=== PATIENT | female | born 1960 | race Caucasian/White ===

== ENCOUNTER 2023-10-15 00:50 | Emergency (ER) | payer OTHER, SELFPAY ==
[2023-10-15 00:53] VITALS: BP 122/99
--- NOTE | 2023-10-15 01:42 | ED.GENMED ---
History of Present Illness
General
Chief Complaint: Change in Mental Status
Source: patient
Exam Limitations: none
Time Seen by Provider: 10/15/23 01:30
Nursing documentation reviewed up to this point in time: agreed with
Travel History
Have you had any contact with someone who has COVID-19?: Unable to Answer
Do you have any symptoms of coronavirus? Fever > 100 degrees, chills, cough, shortness of breath, sore throat, loss of taste or smell, muscle aches, or headache?: Unable to Answer
History of Present Illness
History of Present Illness:
Pleasantly demented 63-year-old female presents with altered mental status. She resides at [facility] and presented tonight for escalating agitation. According to nursing report from the [facility], patient is normally agitated
but staff reports that she is more agitated tonight. who is present at the bedside states that she had an episode similar a few days ago but it resolved on its own. History is limited from patient but is a good historian.
does state that patient had a fall approximate 2 weeks ago and suffered bilateral black eyes. He is does not feel that she ever had a CAT scan to evaluate that. Patient was recently started on risperidone to help with these outbursts.
Past History
Past History
ED Past Medical History: Other (Dementia)
ED Past Surgical History: None
Social History
Tobacco: Non-smoker
Alcohol: Occasional
Personal: Single
Living: [facility]
Employment: Employed
Family History
Family History: Other
Review of Systems
Review of Systems
Allergies reviewed?: Yes
Unable to obtain full review of systems at this time due to: dementia
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
All Other Systems: Not applicable
Psychiatric: Reports anxiety
Phy Exam
General Physical Exam
General Presentation: no apparent distress (At time of exam, but verbal outbursts were heard prior to H&P)
General age: appears older than age
General Skin: warm and dry
General Habitus: normal
General Mental: confused and usual mental status
General Hydration: appears well hydrated
General Chronic Disability: demented
ENT Exam
ENT Exam: EOMI, pharynx normal, neck supple and normocephalic
Eye Exam
Eye Exam: PERRL, cornea clear and conjunctiva normal
Cardiovascular Exam
Cardiovascular Exam: regular rate/rhythm and no edema
Pulmonary Exam
Pulmonary Exam: lungs clear, no respiratory distress, no rales, no crackles, no rhonchi, no stridor, no wheezing and no cough
Gastrointestinal Exam
Gastrointestinal Exam: normal bowel sounds, non tender, soft, no organomegaly, no pulsatile mass and non distended
Neurological Exam
Neurological Exam: alert, oriented x3, no motor deficits and speech normal
Musculoskeletal Exam
Musculoskeletal Exam: full ROM and no edema
Skin Exam
Skin Exam: normal color, warm/dry, no rash and no petechia
Psychiatric Exam
Psychiatric Exam: normal mood/affect
Course
Orders/Labs/Results
Orders:
Orders
10/15/23 01:30
CT Head W/o Iv Contrast Urgent
Comment:
Reason For Exam: ams
10/15/23 02:07
Complete Blood Count/With Diff Urgent
Comprehensive Metabolic Panel Urgent
Urinalysis Reflex To Culture Urgent
Date Specimen was Collected: 10/15/23
Time Specimen was Collected: 02:06
Urine Microscopic Reflex Cult Urgent
Urine Culture Urgent
CATHERINE Source: U
Specimen Description:
Date Specimen was Collected: 10/15/23
Time Specimen was Collected: 02:06
10/15/23 03:01
0.9% Sodium Chloride 500 ml [Nss] 500 ml IV BOLUS
Abnormal Lab Results
10/15/23
02:07
RBC 3.73 L 10^6/uL
(4.20-5.40)
Hgb 11.9 L g/dL
(12.0-16.0)
Hct 33.4 L %
(37.0-47.0)
MCH 31.9 H pg
(27.0-31.0)
Absolute Monos (auto) 0.8 H 10^3/uL
(0.1-0.6)
Lymphocytes % 16.9 L %
(20.5-51.1)
Monocytes % 10.4 H %
(1.7-9.3)
BUN 22 H mg/dl
(7-17)
Glucose 112 H mg/dl
(70-99)
Total Protein 6.1 L g/dl
(6.3-8.2)
Leukocyte Esterase Rfl Trace A
(Negative)
Urine RBC 7-10 A /HPF
(0-2)
Urine Bacteria (Reflex) Many A
(Negative)
10/15/23 02:07
10/15/23 02:07
Vital Signs
Initial and Last Documented VS:
Initial Vital Signs
Temp Pulse Resp BP Pulse Ox
97.8 F 95 18 122/99 95
10/15/23 00:53 10/15/23 00:53 10/15/23 00:53 10/15/23 00:53 10/15/23 00:53
Last Documented Vital Signs
Temp Pulse Resp BP Pulse Ox
97.8 F 81 18 117/70 96
10/15/23 00:53 10/15/23 04:22 10/15/23 04:22 10/15/23 04:22 10/15/23 04:22
*Critical Care Note
Total Time (30-74mins, 75-104mins- exclusive of procedures): Not Applicable
Update Note
Update Note:
CT HEAD
Comparison: 05/07/2020.
IMPRESSION:
No acute intracranial hemorrhage, mass effect, or midline shift.
Moderate global volume loss and chronic small vessel ischemic white matter change.
No large terrritory infarct.
10/15/2023 0321 AM: Patient resting comfortably in no acute distress. She has not had any outburst. CT scan of the head is negative.
10/15/2023 0406 AM: Patient still resting comfortably. wishes to take her back to [facility]. They will continue to work her medications.
ED Attending Note
-
Portions of this chart may have been created with voice recognition software.� Occasional wrong word or��sound alike� substitutions may have occurred due to the inherent limitations of voice recognition software.
Discharge Plan
Departure
Patient Disposition: Home (Routine Discharge)
Date of Disposition: 10/15/23
Time of Disposition: 04:05
Patient with high blood pressure during this ER visit?: Yes
Discharge Problem:
Dementia
Instructions: Dementia (DC)
Prescriptions:
No Action
ASACOL
1 tab PO TID
Patient Comments:
Pt unsure of exact dose
multivitamin 1 EACH tablet
1 ea PO DAILY
desogestrel-ethinyl estradiol [Ortho-Cept (28)] 1 TAB tablet
1 tab PO DAILY
CALCIUM
1 tab PO DAILY
Patient Comments:
pt unsure of exact dose
Celexa
0.5 tab PO BID
Patient Comments:
Pt takes 1/2 tab in AM and 1/2 tab HS. Pt is unsure of exact dose.
latanoprost 1 DROP drops
1 drp BOTH EYES HS
cephalexin 500 MG capsule
500 mg PO QID Qty: 28 0RF
Referrals:
Mario Daniel MD [Family Provider] -
Activity Restrictions/Additional Instructions:
It was a pleasure meeting you and taking part in your care. We hope for your continued healing and wellness.
Please read discharge instructions in their entirety. However, they are for general education and may not describe your exact diagnosis at discharge. Information on your ER visit and medical conditions were discussed with you along with appropriate
follow up information...
If indicated, please take your medications as instructed and indicated on discharge paperwork.
Please schedule a follow up appointment as directed. Call to schedule an appointment
Please return to the emergency department with ANY change in, persisting, or worsening of symptoms. If any of your symptoms do not improve, or persist, or become more severe within 6-12 hours, please return to the emergency department for further
care.
Please return to the emergency department if you develop a headache, neck pain/stiffness, fever greater than 100.4F, chest pain, shortness of breath, persistent nausea, vomiting, slurred speech, difficulty walking, numbness/tingling, weakness, signs
of infection or any other symptoms that are worrisome to you.
If you have any questions or concerns please do not hesitate to call the Hospital at or E-mail me directly at [email or web address]
Interventions
Interventions:
*Risk Screen - Suicide Last Done: 10/15/23 00:53
*General Assessment Last Done: 10/15/23 00:53
*Neglect/Abuse Screening Last Done: 10/15/23 00:53
ED- Fall Risk Assessment Last Done: 10/15/23 01:55
*ED COVID-19 Vaccine History Last Done: 10/15/23 00:53
*Nursing Disposition Last Done: 10/15/23 04:23
ED- Pulmonary Assessment Last Done: 10/15/23 01:55
ED- Neurological Assessment Last Done: 10/15/23 01:55
ED Swallowing Screen Last Done: 10/15/23 02:00
Discharge Date and Time
Discharge Date/Time: 10/15/23 04:23
[2023-10-15 02:15] LABS: % Basophils 0.5 % (0-2); % Eosinophils 2.3 % (0-6); % Immature Granulocytes 0.4 % (0-0.5); % Lymphocytes 16.9 % (20.5-51.1); % Monocytes 10.4 % (1.7-9.3); % Neutrophils 69.5 % (42.2-75.2); Absolute Eosinophils 0.2 10^3/uL (0-0.7); Absolute Lymphocytes 1.3 10^3/uL (1.2-3.4); Absolute Monocytes 0.8 10^3/uL (0.1-0.6); Absolute Neutrophils 5.4 10^3/uL (1.4-6.5); Hematocrit 33.4 % (37.0-47.0); Hemoglobin 11.9 g/dL (12.0-16.0); Mean Corp Hgb Conc. 35.6 g/dL (33.0-37.0); Mean Corpuscular Hgb 31.9 pg (27.0-31.0); Mean Corpuscular Volume 89.5 fL (81.0-99.0); Mean Platelet Volume 8.7 fL (7.4-10.4); Nucleated Red Blood Cells % 0 %; Platelet Count 307 10^3/uL (130-400); Red Blood Cell Count 3.73 10^6/uL (4.20-5.40); Red Cell Dist. Width 12.4 % (11.5-14.5); White Blood Cell Count 7.8 10^3/uL (4.8-10.8)
[2023-10-15 02:16] LABS: Urine Albumin Negative (Neg - Trace); Urine Bilirubin Negative (Negative); Urine Character Slightly Cloudy (Clear); Urine Color Yellow; Urine Glucose Negative (Negative); Urine Ketone Negative (Negative); Urine Leukocyte Trace (Negative); Urine Nitrite Negative (Negative); Urine Occult Blood Negative (Negative); Urine Urobilinogen Negative (Neg - 1+)
[2023-10-15 02:29] LABS: ALT (SGPT) 18 U/L (0-35); AST (SGOT) 23 U/L (14-36); Albumin 3.7 g/dl (3.5-5.0); Alkaline Phosphatase 69 U/L (38-126); Blood Urea Nitrogen 22 mg/dl (7-17); Calcium 10.2 mg/dl (8.4-10.2); Carbon Dioxide 27 mmol/L (22-30); Chloride 102 mmol/L (98-107); Glucose 112 mg/dl (70-99); Potassium 4.3 mmol/L (3.5-5.1); Sodium 140 mmol/L (135-145); Total Bilirubin 0.9 mg/dl (0.2-1.3); Total Protein 6.1 g/dl (6.3-8.2); eGFR > 60.00
[2023-10-15 02:35] LABS: Urine Mucus Moderate; Urine Squamous Cell >30 /LPF (Few)
[2023-10-15 02:36] LABS: Urine Bacteria Many (Negative)
[2023-10-15 04:22] VITALS: BP 117/70
== END 2023-10-15 04:23 | disposition home or self-care (01) ==
LOC: EMR 00:50
PROVIDERS: EMERGENCY PHYSICIAN Student in an Organized Health Care Education/Training Program; FAMILY PHYSICIAN Family Medicine
DX: R41.82 Altered mental status, unspecified (principal); R45.1 Restlessness and agitation; F03.911 Unspecified dementia, unspecified severity, with agitation; I67.82 Cerebral ischemia; R03.0 Elevated blood-pressure reading, without diagnosis of hypertension
CPT/HCPCS: 99284; 70450; 80053; 81003; 81015; 85025; 87086